=== PATIENT | male | born 1955 | race African-American/Black ===

== ENCOUNTER 2017-07-05 17:39 | Emergency (ER) | payer OTHER ==
[~2017-07-05] VITALS: Ht 172.7 cm; Wt 98.0 kg
[~2017-07-05 17:39] MED LIST: AMLODIPINE BESY10 MG PO; COZAAR100 MG PO; IBUPROFEN 600600 M1 PO; NORCO 5-325 TA1 EACH PO; NOVOLOG100 UNIT/1
[2017-07-05] MEDS ORDERED: HYDROCODONE-AP1 EAC6 PO (19:20)
[2017-07-05] MEDS ORDERED: NORFLEX100 MG PO (19:20)
[2017-07-05 19:36] LABS: URINE BILIRUBIN NEGATIVE (Negative); URINE BLOOD NEGATIVE (Negative); URINE CLARITY CLEAR; URINE COLOR YELLOW; URINE GLUCOSE-RANDOM* NEGATIVE (Negative); URINE KETONES TRACE (Negative); URINE LEUKOCYTES NEGATIVE (Negative); URINE NITRITE NEGATIVE (Negative); URINE PROTEIN (DIPSTICK) 2+ (Negative); URINE SPECIFIC GRAVITY 1.015 (1.005-1.035); URINE UROBILINOGEN 0.2 E.U./dl (0.2-1.0)
[2017-07-05 20:09] LABS: BACTERIA 1-9 Few /HPF (None Seen); CRYSTALS None Seen /LPF (None Seen); HYALINE CASTS 4-10 Moderate /LPF (None Seen); MUCUS 0-3 Light strn/LPF (None Seen); SQUAMOUS 0-3 Few /LPF (0-3); URINE RBC 0-2 Rare /HPF (0-2); URINE WBC 0-5 Rare /HPF (0-5)
== END 2017-07-05 20:07 | disposition home or self-care (01) ==
LOC: ER 17:39
PROVIDERS: Nurse Practitioner Family
DX: M54.5 Low back pain (principal); E11.9 Type 2 diabetes mellitus without complications; I10 Essential (primary) hypertension; Z88.8 Allergy status to other drugs, medicaments and biological substances; Z79.4 Long term (current) use of insulin